=== PATIENT | female | born 1955 ===

== ENCOUNTER 2018-11-27 13:21 | Inpatient (IN) | payer MEDICARE, MEDICAID ==
[2018-11-27 16:03] VITALS: BMI 43.3
[2018-11-27] MEDS: Oxycodone/Acetaminophen 5/325 mg Tab PO PRN (19:15)
[2018-11-27] MEDS ORDERED: Oxycodone/Acetaminophen 5/325 mg Tab PO SCH (20:00)
[2018-11-27] MEDS: Insulin Regular 100 units/ml SC SCH (21:50)
[2018-11-28 06:03] LABS: BASO % 0.3 % (0.0-2.0); EOS # 0.3 K/uL (0.0-0.7); EOS % 4.2 % (0.0-4.0); HEMOGLOBIN 12.8 g/dL (12.0-16.0); LYMPH # 2.7 K/uL (1.0-4.3); MEAN CELL VOLUME 92.1 fl (81.0-99.0); MEAN CORPUSCULAR HEMOGLOBIN 31.1 pg (27.0-31.0); MEAN CORPUSCULAR HGB CONC 33.8 g/dL (33.0-37.0); MONO # 0.7 K/uL (0.0-0.8); MONO % 8.1 % (0.0-10.0); NEUT # 4.4 K/uL (1.8-7.0); NEUT % 54.4 % (50.0-75.0); NRBC % 0.1 % (0.0-0.0); RBC 4.11 Mil/uL (3.80-5.20); RED CELL DISTRIBUTION WIDTH 14.6 % (11.5-14.5); WHITE BLOOD COUNT 8.2 K/uL (4.8-10.8)
[2018-11-28 06:10] LABS: ALB/GLOB RATIO 1.2 (1.0-2.1); ALBUMIN 4.1 g/dL (3.5-5.0); ALT/SGPT 28 U/L (9-52); AST/SGOT 26 U/L (14-36); BLOOD UREA NITROGEN 19 mg/dl (7-17); CALCIUM 9.2 mg/dL (8.4-10.2); GFR NON-AFRICAN AMERICAN > 60
[2018-11-28 06:19] LABS: PROTHROMBIN TIME 11.8 Seconds (9.8-13.1)
--- NOTE | 2018-11-28 06:19 | CP.PCM.HP ---
<[facility] - Last Filed: 11/28/18 10:42> History of Present Illness - History of Present Illness History of Present Illness: 63 yo obese female with hx of DM and HTN transferred from [facility] due to R humeral and femoral fracture. Patient is status post fall last Sunday while she was waking and taking pictures in a park. CT of RUE showed slightly comminute humeral neck fracture, no dislocation and CT of RLE showed oblique fx of distal femoral shaft, slightly displaced at metaphysis, non displaced fracture line on articular surface of the lateral knee joint. Patient has R leg immobilizer at this time and also sling on R arm. Complaining of pain when moving but controlled with meds. Patient admitted to Rehab unit. PMH:DM, HTN, arthritis PSx: Right knee replacement (2001), Cesarian section (1979) Allergy: as above Social: Denies alcohol, tobacco, or illicit drug. She lives with her sister and is unemployed Family Hx: Father DM, Mother , Sister: unknown cancer at 64 Medications: chart reviewed Present on Admission - Present on Admission Any Indicators Present on Admission: No Review of Systems - Review of Systems All systems: reviewed and no additional remarkable complaints except (HPI) Past Patient History - Infectious Disease Hx of Infectious Diseases: None - Past Medical History & Family History Past Medical History?: Yes - Past Social History Smoking Status: Never Smoked - CARDIAC Hx Hypertension: Yes - PULMONARY Hx Asthma: No - NEUROLOGICAL Hx Neurological Disorder: No - HEENT Hx HEENT Problems: No - RENAL Hx Chronic Kidney Disease: No - ENDOCRINE/METABOLIC Hx Endocrine Disorders: Yes Hx Diabetes Mellitus Type 2: Yes - HEMATOLOGICAL/ONCOLOGICAL Hx Blood Disorders: No - INTEGUMENTARY Hx Dermatological Problems: No - MUSCULOSKELETAL/RHEUMATOLOGICAL Hx Falls: Yes - GASTROINTESTINAL Hx Gastrointestinal Disorders: No - GENITOURINARY/GYNECOLOGICAL Other/Comment: "sx on ovary" - PSYCHIATRIC Hx Substance Use: No - SURGICAL HISTORY Hx Surgeries: Yes Hx Orthopedic Surgery: Yes (knee) Hx Tubal Ligation: Yes Other/Comment: rt knee pain. ovarian sx - ANESTHESIA Hx Anesthesia: Yes Hx Anesthesia Reactions: No Meds Allergies/Adverse Reactions: Allergies Allergy/AdvReac Type Severity Reaction Status Date / Time ibuprofen Allergy SWELLING Verified 06/07/18 10:15 naproxen Allergy Verified 06/07/18 13:34 aspirin AdvReac RASH Verified 06/13/18 08:04 Physical Exam - Constitutional Appears: Non-toxic, No Acute Distress - Head Exam Head Exam: NORMAL INSPECTION - Eye Exam Eye Exam: EOMI, PERRL - ENT Exam ENT Exam: Mucous Membranes Moist - Neck Exam Neck exam: Positive for: Full Rom. Negative for: Lymphadenopathy, Tenderness, Thyromegaly - Respiratory Exam Respiratory Exam: Clear to Auscultation Bilateral, NORMAL BREATHING PATTERN. absent: Decreased Breath Sounds - Cardiovascular Exam Cardiovascular Exam: REGULAR RHYTHM, +S1, +S2. absent: Tachycardia - GI/Abdominal Exam GI & Abdominal Exam: Normal Bowel Sounds, Soft. absent: Distended, Tenderness - Extremities Exam Extremities exam: Positive for: normal capillary refill, pedal pulses present. Negative for: tenderness (R knee and R shoulder) Additional comments: RUE: R shoulder brace in place, no edema or signs of neurovascular compromise noted. RLE: immobilizer noted in place, no calf tenderness or edema but reports pain on the knee. - Neurological Exam Neurological exam: Alert, CN II-XII Intact, Oriented x3 - Psychiatric Exam Psychiatric exam: Normal Mood - Skin Skin Exam: Dry, Warm Results - Vital Signs Recent Vital Signs: Last Vital Signs Temp 98.1 F 11/27/18 20:00 Pulse 85 11/27/18 20:00 Resp 20 11/27/18 20:00 BP 125/56 L 11/27/18 20:00 Pulse Ox 95 11/27/18 20:00 - Labs Result Diagrams: 11/28/18 05:51 11/28/18 05:51 Labs: Laboratory Results - last 24 hr 11/27/18 11/27/18 11/28/18 19:09 21:48 05:42 WBC RBC Hgb Hct MCV MCH MCHC RDW Plt Count MPV Neut % (Auto) Lymph % (Auto) [place]eller % (Auto) Eos % (Auto) Baso % (Auto) Neut # (Auto) Lymph # (Auto) Teller # (Auto) Eos # (Auto) Baso # (Auto) PT INR Sodium Potassium Chloride Carbon Dioxide Anion Gap BUN Creatinine Est GFR ( Amer) Est GFR (Non-Af Amer) POC Glucose (mg/dL) 194 H 171 H 139 H Random Glucose Calcium Total Bilirubin AST ALT Alkaline Phosphatase Total Protein Albumin Globulin Albumin/Globulin Ratio 11/28/18 11/28/18 11/28/18 05:51 05:51 05:51 WBC 8.2 RBC 4.11 Hgb 12.8 Hct 37.9 MCV 92.1 MCH 31.1 H MCHC 33.8 RDW 14.6 H Plt Count 171 MPV 10.0 Neut % (Auto) 54.4 Lymph % (Auto) 33.0 Teller % (Auto) 8.1 Eos % (Auto) 4.2 H Baso % (Auto) 0.3 Neut # (Auto) 4.4 Lymph # (Auto) 2.7 Teller # (Auto) 0.7 Eos # (Auto) 0.3 Baso # (Auto) 0.0 PT 11.8 INR 1.0 Sodium 138 Potassium 4.4 Chloride 98 Carbon Dioxide 30 Anion Gap 14 BUN 19 H Creatinine 0.6 L Est GFR ( Amer) > 60 Est GFR (Non-Af Amer) > 60 POC Glucose (mg/dL) Random Glucose 135 H Calcium 9.2 Total Bilirubin 0.9 AST 26 ALT 28 Alkaline Phosphatase 113 Total Protein 7.6 Albumin 4.1 Globulin 3.5 Albumin/Globulin Ratio 1.2 Assessment & Plan - Assessment and Plan (Free Text) Assessment: 63 yo obese female with hx of DM and HTN with R humeral and femoral fracture s/p fall on 11/23/18 admitted to rehab unit for PT/OT. Plan: R humeral and femoral fracture - s/p fall - pain management - NWB to RLE and RUE - Physiatry consulted, recs appreciated - PT/OT - HTN: controlled, some elevations noted likely 2/2 to pain, continue home meds - DM: chronic controlled, continue home meds - DVT ppx - labs in am - rest of plan as ordered Case discussed with Dr Hillman. <Froy Hillman - Last Filed: 11/29/18 08:06> Results - Vital Signs Recent Vital Signs: Last Vital Signs Temp 98.4 F 11/28/18 20:35 Pulse 84 11/28/18 20:35 Resp 20 11/28/18 20:35 BP 117/63 11/28/18 20:35 Pulse Ox 97 11/28/18 20:35 - Labs Result Diagrams: 11/28/18 05:51 11/28/18 05:51 Labs: Laboratory Results - last 24 hr 11/28/18 11/28/1819 05:51 11:22 16:00 POC Glucose (mg/dL) 151 H 146 H Hemoglobin A1c 6.2 11/28/18 11/29/18 20:48 07:12 POC Glucose (mg/dL) 147 H 128 H Hemoglobin A1c Assessment & Plan - Assessment and Plan (Free Text) Plan: Patient was personally seen and examined by me in rounds with residents. Available labs and diagnostic data reviewed. Case, Patient's condition and management plan discussed with residents in rounds. Agree with resident's progress note. Plan: As ordered.
[2018-11-28 06:21] LABS: PARTIAL THROMBOPLASTIN TIME 36.7 Seconds (25.6-37.1)
[2018-11-28 06:38] LABS: T3 1.16 nmol/L (1.49-2.60)
[2018-11-28] MEDS: Insulin Regular 100 units/ml SC SCH ×4 (06:58→22:36)
[2018-11-28] MEDS: Enoxaparin 40 mg Syringe SC SCH (09:43)
[2018-11-28] MEDS: Oxycodone/Acetaminophen 5/325 mg Tab PO PRN ×2 (09:49→16:38)
--- NOTE | 2018-11-28 19:00 | PCM.CPAPS ---
History of Present Illness - History of Present Illness History of Present Illness: 63 year old female admitted to acute rehab last night from [facility], status post fall and suffered a right humerus and right femur fracture. other Pmh significant for DM, arthritis, obesity and history of r knee surgery Review of Systems - Musculoskeletal Musculoskeletal: Limited Range of Motion, Muscle Weakness Past Patient History - Infectious Disease Hx of Infectious Diseases: None - Past Medical History & Family History Past Medical History?: Yes - Past Social History Smoking Status: Never Smoked - CARDIAC Hx Hypertension: Yes - PULMONARY Hx Asthma: No - NEUROLOGICAL Hx Neurological Disorder: No - HEENT Hx HEENT Problems: No - RENAL Hx Chronic Kidney Disease: No - ENDOCRINE/METABOLIC Hx Diabetes Mellitus Type 2: Yes - HEMATOLOGICAL/ONCOLOGICAL Hx Blood Disorders: No - INTEGUMENTARY Hx Dermatological Problems: No - MUSCULOSKELETAL/RHEUMATOLOGICAL Hx Falls: Yes - GASTROINTESTINAL Hx Gastrointestinal Disorders: No - GENITOURINARY/GYNECOLOGICAL Other/Comment: "sx on ovary" - PSYCHIATRIC Hx Substance Use: No - SURGICAL HISTORY Hx Surgeries: Yes Hx Orthopedic Surgery: Yes (knee) Hx Tubal Ligation: Yes Other/Comment: rt knee pain. ovarian sx - ANESTHESIA Hx Anesthesia: Yes Hx Anesthesia Reactions: No Meds Allergies/Adverse Reactions: Allergies Allergy/AdvReac Type Severity Reaction Status Date / Time ibuprofen Allergy SWELLING Verified 06/07/18 10:15 naproxen Allergy Verified 06/07/18 13:34 aspirin AdvReac RASH Verified 06/13/18 08:04 - Medications Medications: Current Medications Acetaminophen (Tylenol 325mg Tab) 650 mg PO Q6 PRN PRN Reason: Pain, moderate (4-7) Atorvastatin Calcium (Lipitor) 40 mg PO [facility] Last Admin: 11/27/18 21:40 Dose: 40 mg Docusate Sodium (Colace) 100 mg PO BID [facility] Last Admin: 11/28/18 16:15 Dose: 100 mg Enoxaparin Sodium (Lovenox) 40 mg SC DAILY [facility]; Protocol Last Admin: 11/28/18 09:43 Dose: 40 mg Famotidine (Pepcid) 20 mg PO BID [facility] Last Admin: 11/28/18 16:15 Dose: 20 mg Hydrocortisone (Cortizone 0.5% Cream) 1 applic TOP BID [facility] Last Admin: 11/28/18 16:15 Dose: 1 applic Insulin Human Regular (Humulin R) 0 units SC [facility]; Protocol Last Admin: 11/28/18 16:13 Dose: Not Given Metformin HCl (Glucophage) 1,000 mg PO BID [facility] Last Admin: 11/28/18 16:15 Dose: 1,000 mg Oxycodone/Acetaminophen (Percocet 5/325 Mg Tab) 1 tab PO Q4 PRN PRN Reason: Pain, severe (8-10) Stop: 11/30/18 18:52 Last Admin: 11/28/18 16:38 Dose: 1 tab Physical Exam - Constitutional Appears: Well - Head Exam Head Exam: ATRAUMATIC, NORMAL INSPECTION, NORMOCEPHALIC - Eye Exam Eye Exam: EOMI, Normal appearance Pupil Exam: NORMAL ACCOMODATION, PERRL - ENT Exam ENT Exam: Mucous Membranes Moist, Normal Exam - Neck Exam Neck exam: Positive for: Normal Inspection - Respiratory Exam Respiratory Exam: Clear to Auscultation Bilateral, NORMAL BREATHING PATTERN - Cardiovascular Exam Cardiovascular Exam: REGULAR RHYTHM - GI/Abdominal Exam GI & Abdominal Exam: Normal Bowel Sounds - Rectal Exam Rectal Exam: NORMAL INSPECTION - Exam External exam: NORMAL EXTERNAL EXAM - Extremities Exam Extremities exam: Positive for: normal inspection Additional comments: right upper arm in sling and right leg in immobilizer with non weight bearing, toes and hands with good color, - Back Exam Back exam: NORMAL INSPECTION - Neurological Exam Neurological exam: Alert, CN II-XII Intact - Psychiatric Exam Psychiatric exam: Normal Affect - Skin Skin Exam: Normal Color Results - Vital Signs Recent Vital Signs: Last Vital Signs Temp 97.9 F 11/28/18 08:43 Pulse 81 11/28/18 12:20 Resp 21 11/28/18 12:20 BP 127/61 11/28/18 12:20 Pulse Ox 97 11/28/18 12:20 - Labs Result Diagrams: 11/28/18 05:51 11/28/18 05:51 Labs: Laboratory Results - last 24 hr 11/27/18 11/27/18 11/28/18 19:09 21:48 05:42 WBC RBC Hgb Hct MCV MCH MCHC RDW Plt Count MPV Neut % (Auto) Lymph % (Auto) [place] % (Auto) Eos % (Auto) Baso % (Auto) Neut # (Auto) Lymph # (Auto) [place] # (Auto) Eos # (Auto) Baso # (Auto) PT INR APTT Sodium Potassium Chloride Carbon Dioxide Anion Gap BUN Creatinine Est GFR ( Amer) Est GFR (Non-Af Amer) POC Glucose (mg/dL) 194 H 171 H 139 H Random Glucose Hemoglobin A1c Calcium Total Bilirubin AST ALT Alkaline Phosphatase Total Protein Albumin Globulin Albumin/Globulin Ratio Vitamin B12 Thyroxine (T4) Total T3 TSH 3rd Generation 11/28/18 11/28/18 11/28/18 05:51 05:51 05:51 WBC 8.2 RBC 4.11 Hgb 12.8 Hct 37.9 MCV 92.1 MCH 31.1 H MCHC 33.8 RDW 14.6 H Plt Count 171 MPV 10.0 Neut % (Auto) 54.4 Lymph % (Auto) 33.0 [place] % (Auto) 8.1 Eos % (Auto) 4.2 H Baso % (Auto) 0.3 Neut # (Auto) 4.4 Lymph # (Auto) 2.7 [place] # (Auto) 0.7 Eos # (Auto) 0.3 Baso # (Auto) 0.0 PT INR APTT Sodium 138 Potassium 4.4 Chloride 98 Carbon Dioxide 30 Anion Gap 14 BUN 19 H Creatinine 0.6 L Est GFR ( Amer) > 60 Est GFR (Non-Af Amer) > 60 POC Glucose (mg/dL) Random Glucose 135 H Hemoglobin A1c 6.2 Calcium 9.2 Total Bilirubin 0.9 AST 26 ALT 28 Alkaline Phosphatase 113 Total Protein 7.6 Albumin 4.1 Globulin 3.5 Albumin/Globulin Ratio 1.2 Vitamin B12 348 Thyroxine (T4) 14.1 H Total T3 1.16 L TSH 3rd Generation 3.72 11/28/18 11/28/18 05:51 11:22 WBC RBC Hgb Hct MCV MCH MCHC RDW Plt Count MPV Neut % (Auto) Lymph % (Auto) [place] % (Auto) Eos % (Auto) Baso % (Auto) Neut # (Auto) Lymph # (Auto) [place] # (Auto) Eos # (Auto) Baso # (Auto) PT 11.8 INR 1.0 APTT 36.7 Sodium Potassium Chloride Carbon Dioxide Anion Gap BUN Creatinine Est GFR ( Amer) Est GFR (Non-Af Amer) POC Glucose (mg/dL) 151 H Random Glucose Hemoglobin A1c Calcium Total Bilirubin AST ALT Alkaline Phosphatase Total Protein Albumin Globulin Albumin/Globulin Ratio Vitamin B12 Thyroxine (T4) Total T3 TSH 3rd Generation Assessment & Plan (1) Right humeral fracture Assessment and Plan: sling and non weight bearing Status: Acute (2) Right femoral fracture Assessment and Plan: immobilizer and non weight bearing Status: Acute - Assessment and Plan (Free Text) Assessment: Plan patient is non weight bearing on right arm with sling and also non weight bearing right leg with immobilizer. Discussed case with PMD Dr Hillman and Dr Dm Velasquez orthopedic doctor.([phone]). Dr Velasquez stated patient does not need surgical intervention and advised to follow the non weight bearing on the right arm with sling and R leg with immobilizer non weight bearing. He said he will follow patient as an outpatient in his office,patient scheduled for follow up tomorrow at 9.[address] Velasquez office. Patient examined , family was present and they asked for a second opinion. Instructed family to discuss with primary medical doctor Dr Hillman, and gave his phone to family. Family said they know him and will reach out to him. Also called Dr Hillman and made him aware of family wishes. Rehab is limited at present. - Functional Status Prior to Admission: patient was independent Current Status: now needs assistance in all activities Impairment Code: 08.9 right humerus and right femur fracture
--- NOTE | 2018-11-28 19:33 | PCM.OPOC ---
Physiatry Overall Plan of Care - Overall Plan of Care Estimated Length of Stay in Weeks: 1 Rehab Impairment: Mobility, Gait, Balance, Coordination Etiologic Diagnosis: Other Rehab/Medical Prognosis: Fair - Anticipated Interventions Physical Therapy:: Yes Number of Hours: 2 Number of times per week: 5 Number of Week(s) Duration: 1 Occupational Therapy:: Yes Number of Hours: 1 Number of times per week: 5 Number of Week(s) Duration: 1 Speech Therapy:: No Recreational Therapy:: Yes Number of Hours: 1 Number of times per week: 5 Number of Week(s) Duration: 1 - Therapy Goals Bed Mobility: Minimal Assistance Ambulation: Dependent Functional Positional Changes:: Contact Guard - Functional Status Prior to Admission: independent Current Status: needs assistance in adls, transfers and gait - Functional Outcomes Functional Outcomes: fair - Discharge Plan Identification of Barriers to Discharge: Other Discharge Destination: Subacute
[2018-11-29] MEDS: Oxycodone/Acetaminophen 5/325 mg Tab PO PRN ×4 (03:16→20:14)
[2018-11-29] MEDS: Insulin Regular 100 units/ml SC SCH ×4 (07:14→21:31)
[2018-11-29] MEDS: Enoxaparin 40 mg Syringe SC SCH (08:21)
--- NOTE | 2018-11-29 11:14 | CP.PCM.PN ---
<Mercy Zhong - Last Filed: 11/29/18 11:17> Subjective - Date & Time of Evaluation Date of Evaluation: 11/29/18 Time of Evaluation: 11:10 - Subjective Subjective: Patient seen and examined this morning, reports pain improved, no overnight events. Working on PT Going for Ortho consult this am Objective - Vital Signs/Intake and Output Vital Signs (last 24 hours): Temp Pulse Resp BP Pulse Ox 97.9 F 82 20 133/67 95 11/29/18 08:28 11/29/18 08:28 11/29/18 08:28 11/29/18 08:28 11/29/18 08:28 - Medications Medications: Current Medications Acetaminophen (Tylenol 325mg Tab) 650 mg PO Q6 PRN PRN Reason: Pain, moderate (4-7) Atorvastatin Calcium (Lipitor) 40 mg PO HS [facility]S [facility] BEDS AT [facility] Last Admin: 11/28/18 22:35 Dose: 40 mg Docusate Sodium (Colace) 100 mg PO BID [facility] 234 BEDS AT [facility] Last Admin: 11/29/18 08:22 Dose: 100 mg Enoxaparin Sodium (Lovenox) 40 mg SC DAILY [facility]S [facility]CLUDE 234 BEDS AT [facility]; Protocol Last Admin: 11/29/18 08:21 Dose: 40 mg Famotidine (Pepcid) 20 mg PO BID [facility] 234 BEDS AT [facility] Last Admin: 11/29/18 08:22 Dose: 20 mg Hydrocortisone (Cortizone 0.5% Cream) 1 applic TOP BID [facility]CLUDE 234 BEDS AT [facility] Last Admin: 11/29/18 08:23 Dose: 1 applic Insulin Human Regular (Humulin R) 0 units [facility]; Protocol Last Admin: 11/29/18 07:14 Dose: Not Given Metformin HCl (Glucophage) 1,000 mg PO BID [facility]CLUDE 234 BEDS AT [facility] Last Admin: 11/29/18 08:21 Dose: 1,000 mg Oxycodone/Acetaminophen (Percocet 5/325 Mg Tab) 1 tab PO Q4 PRN PRN Reason: Pain, severe (8-10) Stop: 11/30/18 18:52 Last Admin: 11/29/18 08:19 Dose: 1 tab - Labs Labs: 11/28/18 05:51 11/28/18 05:51 PT 11.8 Seconds (9.8-13.1) 11/28/18 05:51 INR 1.0 11/28/18 05:51 APTT 36.7 Seconds (25.6-37.1) 11/28/18 05:51 - Constitutional Appears: No Acute Distress - Head Exam Head Exam: NORMAL INSPECTION - Eye Exam Eye Exam: EOMI, PERRL - ENT Exam ENT Exam: Mucous Membranes Moist - Respiratory Exam Respiratory Exam: Clear to Ausculation Bilateral, NORMAL BREATHING PATTERN. absent: Chest Wall Tenderness - Cardiovascular Exam Cardiovascular Exam: REGULAR RHYTHM, +S1, +S2. absent: Tachycardia - GI/Abdominal Exam GI & Abdominal Exam: Soft, Normal Bowel Sounds. absent: Distended, Tenderness - Extremities Exam Extremities Exam: absent: Calf Tenderness, Pedal Edema Additional comments: R shoulder sling and R knee immobilizer noted in place, swelling much improved, able to move fingers and toes, sensation intact - Neurological Exam Neurological Exam: Alert, Awake, CN II-XII Intact, Oriented x3 - Skin Skin Exam: Dry, Warm Assessment and Plan - Assessment and Plan (Free Text) Assessment: 63 yo obese female with hx of DM and HTN with R humeral and femoral fracture s/p fall on 11/23/18 admitted to rehab unit for PT/OT. Plan: R humeral and femoral fracture - pain management - NWB to RLE and RUE - Physiatry consulted, recs appreciated - PT/OT - HTN: controlled, continue home meds - DM: chronic controlled, continue home meds - DVT ppx - labs in am - rest of plan as ordered Case discussed with Dr Hillman. <Froy Hillman - Last Filed: 12/04/18 16:50> Objective - Vital Signs/Intake and Output Vital Signs (last 24 hours): Temp Pulse Resp BP Pulse Ox 98.7 F 77 19 132/83 98 12/04/18 08:12 12/04/18 08:12 12/04/18 08:12 12/04/18 08:12 12/04/18 07:54 - Medications Medications: Current Medications Acetaminophen (Tylenol 325mg Tab) 650 mg PO Q6 PRN PRN Reason: Pain, moderate (4-7) Atorvastatin Calcium (Lipitor) 40 mg PO HS COUNTS [facility]CLUDE 234 BEDS AT [facility] Last Admin: 12/03/18 21:16 Dose: 40 mg Ciprofloxacin (Cipro) 500 mg PO Q12 COUNTS INCLUDE 234 BEDS AT [facility]; Protocol Last Admin: 12/04/18 08:50 Dose: 500 mg Docusate Sodium (Colace) 100 mg PO BID [facility]CLUDE 234 BEDS AT [facility] Last Admin: 12/04/18 16:30 Dose: 100 mg Enoxaparin Sodium (Lovenox) 40 mg SC DAILY [facility]S [facility]CLUDE 234 BEDS AT [facility]; Protocol Last Admin: 12/04/18 08:51 Dose: 40 mg Famotidine (Pepcid) 20 mg PO BID [facility]S [facility]CLUDE 234 BEDS AT [facility] Last Admin: 12/04/18 16:29 Dose: 20 mg Hydrocortisone (Cortizone 0.5% Cream) 1 applic TOP BID COUNTS INCLUDE 234 BEDS AT [facility] Last Admin: 12/04/18 16:30 Dose: 1 applic Insulin Human Regular (Humulin R) 0 units SC [facility] 234 [facility]EDS [facility]; Protocol Last Admin: 12/04/18 16:27 Dose: Not Given Metformin HCl (Glucophage) 1,000 mg PO BID [facility]S INCLUDE 234 BEDS AT [facility] Last Admin: 12/04/18 16:30 Dose: 1,000 mg Ondansetron HCl (Zofran Tab) 4 mg PO Q8 PRN PRN Reason: Nausea/Vomiting Oxycodone/Acetaminophen (Percocet 5/325 Mg Tab) 1 tab PO Q4 PRN PRN Reason: Pain, severe (8-10) Stop: 12/06/18 08:01 Last Admin: 12/04/18 13:31 Dose: 1 tab - Labs Labs: 12/02/18 06:00 12/02/18 06:00 PT 11.8 Seconds (9.8-13.1) 11/28/18 05:51 INR 1.0 11/28/18 05:51 APTT 36.7 Seconds (25.6-37.1) 11/28/18 05:51 Assessment and Plan - Assessment and Plan (Free Text) Assessment: Patient was personally seen and examined by me in rounds with residents. Available labs and diagnostic data reviewed. Case, Patient's condition and management plan discussed with residents in r ounds. Agree with resident's progress note. Plan: As ordered.
--- NOTE | 2018-11-29 14:02 | RAD ---
Date of service: 11/28/2018 PROCEDURE: Radiographs of the Right Shoulder HISTORY: Fracture COMPARISON: No prior. TECHNIQUE: One views obtained. FINDINGS: BONES: Limited examination. Single view. Technically limited due to body habitus. No evidence of fracture. JOINTS: Unremarkable glenohumeral articulation. Irregularity of acromioclavicular articulation with widening of the joint.. Evaluation limited. SOFT TISSUES: Normal. OTHER FINDINGS: None. IMPRESSION: Limited examination. No acute fracture. Mild widening of the acromioclavicular joint with irregularity of the articular surfaces. Uncertain significance. The preliminary findings for this examination were reported by [facility] at 8:50 p.m. on 11/28/2018. There is concurrence of this report with the preliminary findings.
--- NOTE | 2018-11-29 14:07 | RAD ---
PROCEDURE: Radiographs of the right humerus. HISTORY: Fracture COMPARISON: None. TECHNIQUE: 2 views obtained. FINDINGS: BONES: Suspect nondisplaced fracture of humeral neck. This was poorly visualized on the single view of the shoulder included in separate examination. No other fracture identified. SOFT TISSUES: Normal. OTHER FINDINGS: None. IMPRESSION: Probable nondisplaced fracture of humeral neck. Technically limited examination. The preliminary findings for this examination were reported by [facility] at 8:50 p.m. on 11/28/2018. There is discordance of this report with the preliminary findings. This discrepancy was discussed with the patient's nurse, Marsha at 2 p.m. on 11/29/2018.
--- NOTE | 2018-11-29 14:08 | RAD ---
Date of service: 11/28/2018 PROCEDURE: Right Femur Radiographs. HISTORY: Fracture COMPARISON: None. TECHNIQUE: AP and Lateral Radiographs of the right femur. Three views obtained. FINDINGS: FEMUR: Oblique nondisplaced fracture distal femur. Possible comminution. No evidence of intra-articular extension. Technically limited examination. No other fracture identified. SOFT TISSUES: Normal. OTHER FINDINGS: None. IMPRESSION: Oblique nondisplaced distal femoral diaphysis fracture. The preliminary findings for this examination were reported by [facility] at 9:28 p.m. on 11/28/2018. There is concurrence of this report with the preliminary findings.
--- NOTE | 2018-11-29 14:10 | RAD ---
Date of service: 11/28/2018 PROCEDURE: Right Knee Radiographs. HISTORY: Fracture COMPARISON: None. TECHNIQUE: One views obtained. FINDINGS: BONES: Technically limited examination. Oblique nondisplaced distal femoral diaphysis fracture. No other fracture appreciated. No evidence of intra-articular extension. JOINTS: Medial osteoarthritis. No articular erosion. Patellofemoral articulation is not evaluated. JOINT EFFUSION: Unable to evaluate in the absence of a lateral view. OTHER FINDINGS: None. IMPRESSION: Oblique nondisplaced distal femoral diaphysis fracture. Medial osteoarthritis of the knee. Technically limited examination. The preliminary findings for this examination were reported by [facility] at 9:28 p.m. on 11/28/2018. There is concurrence of this report with the preliminary findings.
--- NOTE | 2018-11-29 15:20 | CP.PCM.PN ---
Subjective - Date & Time of Evaluation Date of Evaluation: 11/29/18 Time of Evaluation: 14:00 - Subjective Subjective: patient is lying in bed , comfortable status post follow up in orthopedic office today Objective - Vital Signs/Intake and Output Vital Signs (last 24 hours): Temp Pulse Resp BP Pulse Ox 97.9 F 82 20 133/67 95 11/29/18 08:28 11/29/18 08:28 11/29/18 08:28 11/29/18 08:28 11/29/18 08:28 - Medications Medications: Current Medications Acetaminophen (Tylenol 325mg Tab) 650 mg PO Q6 PRN PRN Reason: Pain, moderate (4-7) Atorvastatin Calcium (Lipitor) 40 mg PO HS [facility] Last Admin: 11/28/18 22:35 Dose: 40 mg Docusate Sodium (Colace) 100 mg PO BID [facility] Last Admin: 11/29/18 08:22 Dose: 100 mg Enoxaparin Sodium (Lovenox) 40 mg SC DAILY [facility]; Protocol Last Admin: 11/29/18 08:21 Dose: 40 mg Famotidine (Pepcid) 20 mg PO BID [facility] Last Admin: 11/29/18 08:22 Dose: 20 mg Hydrocortisone (Cortizone 0.5% Cream) 1 applic TOP BID [facility] Last Admin: 11/29/18 08:23 Dose: 1 applic Insulin Human Regular (Humulin R) 0 units SC [facility]; Protocol Last Admin: 11/29/18 11:54 Dose: Not Given Metformin HCl (Glucophage) 1,000 mg PO BID [facility] Last Admin: 11/29/18 08:21 Dose: 1,000 mg Oxycodone/Acetaminophen (Percocet 5/325 Mg Tab) 1 tab PO Q4 PRN PRN Reason: Pain, severe (8-10) Stop: 11/30/18 18:52 Last Admin: 11/29/18 14:15 Dose: 1 tab - Labs Labs: 11/28/18 05:51 11/28/18 05:51 PT 11.8 Seconds (9.8-13.1) 11/28/18 05:51 INR 1.0 11/28/18 05:51 APTT 36.7 Seconds (25.6-37.1) 11/28/18 05:51 - Constitutional Appears: Well - Head Exam Head Exam: NORMAL INSPECTION, NORMOCEPHALIC - Eye Exam Eye Exam: EOMI, Normal appearance, PERRL Pupil Exam: NORMAL ACCOMODATION - ENT Exam ENT Exam: Mucous Membranes Moist, Normal Exam - Neck Exam Neck Exam: Full ROM, Normal Inspection - Respiratory Exam Respiratory Exam: Clear to Ausculation Bilateral, NORMAL BREATHING PATTERN - Cardiovascular Exam Cardiovascular Exam: REGULAR RHYTHM - GI/Abdominal Exam GI & Abdominal Exam: Soft, Normal Bowel Sounds - Rectal Exam Rectal Exam: NORMAL INSPECTION - Exam External exam: NORMAL EXTERNAL EXAM - Extremities Exam Extremities Exam: Full ROM, Normal Capillary Refill, Normal Inspection - Back Exam Back Exam: NORMAL INSPECTION - Neurological Exam Neurological Exam: Alert, Awake Neuro motor strength exam: Right Upper Extremity: 3 (sling), Right Lower Extremity: 3 (immobilizer) - Psychiatric Exam Psychiatric exam: Normal Affect, Normal Mood - Skin Skin Exam: Dry, Intact Assessment and Plan (1) Right humeral fracture Assessment & Plan: patient was seen in orthopedic doctor office . according to the orthopaedic consult written Md discussed risks of fracture displacement with patient.Patient refusing surgery. She will continue non weight bearing right upper and right lower extremity. She is scheduled for follow up appointment for December 18 Today I examined patient with the arcade game technician Geraldine, patient claims she is afraid of surgery and will follow with the present precautions as her fracture is' delicate' and will follow up with the orthopedic doctor Dr Rodriguez and his group in next few weeks for follow up. Discussed with patient and family member present in room that rehab is limited and will need subacute rehab. Status: Acute (2) Right femoral fracture Status: Acute
[2018-11-30] MEDS: Insulin Regular 100 units/ml SC SCH ×4 (07:50→21:00)
[2018-11-30 08:33] LABS: HEMOGLOBIN 12.3 g/dL (12.0-16.0); MEAN CELL VOLUME 92.1 fl (81.0-99.0); MEAN CORPUSCULAR HGB CONC 33.6 g/dL (33.0-37.0); RBC 3.98 Mil/uL (3.80-5.20); RED CELL DISTRIBUTION WIDTH 14.6 % (11.5-14.5); WHITE BLOOD COUNT 8.8 K/uL (4.8-10.8)
[2018-11-30 08:35] LABS: ALB/GLOB RATIO 1.2 (1.0-2.1); ALT/SGPT 25 U/L (9-52); AST/SGOT 25 U/L (14-36); BLOOD UREA NITROGEN 17 mg/dl (7-17); CALCIUM 9.1 mg/dL (8.4-10.2); GFR NON-AFRICAN AMERICAN > 60
[2018-11-30] MEDS: Oxycodone/Acetaminophen 5/325 mg Tab PO PRN ×2 (09:15→13:33)
[2018-11-30] MEDS: Enoxaparin 40 mg Syringe SC SCH (09:17)
--- NOTE | 2018-11-30 09:30 | CP.PCM.PN ---
Subjective - Date & Time of Evaluation Date of Evaluation: 11/30/18 Time of Evaluation: 09:28 - Subjective Subjective: Dr Araujo PMR coverage for Dr Mims on Teodora Chambers, born 1955 who has been admitted to [facility] for acute inpatient rehabilitation following a fall that resulted in non-displaced fracture of the right femur and right humerus. Immo bilizer on both and NWB. Denies numbness and tingling. Pain is controlled with medication. She is right hand dominant. Objective - Vital Signs/Intake and Output Vital Signs (last 24 hours): Temp Pulse Resp BP Pulse Ox 97.7 F 83 20 128/70 96 11/30/18 07:37 11/30/18 07:37 11/30/18 07:37 11/30/18 07:37 11/30/18 07:37 - Medications Medications: Current Medications Acetaminophen (Tylenol 325mg Tab) 650 mg PO Q6 PRN PRN Reason: Pain, moderate (4-7) Atorvastatin Calcium (Lipitor) 40 mg PO [facility] Last Admin: 11/29/18 21:28 Dose: 40 mg Docusate Sodium (Colace) 100 mg PO BID [facility] Last Admin: 11/30/18 09:16 Dose: 100 mg Enoxaparin Sodium (Lovenox) 40 mg SC DAILY [facility]; Protocol Last Admin: 11/30/18 09:17 Dose: 40 mg Famotidine (Pepcid) 20 mg PO BID [facility] Last Admin: 11/30/18 09:16 Dose: 20 mg Hydrocortisone (Cortizone 0.5% Cream) 1 applic TOP BID [facility] Last Admin: 11/30/18 09:16 Dose: 1 applic Insulin Human Regular (Humulin R) 0 units SC [facility]; Protocol Last Admin: 11/30/18 07:50 Dose: Not Given Metformin HCl (Glucophage) 1,000 mg PO BID [facility] Last Admin: 11/30/18 09:16 Dose: 1,000 mg Oxycodone/Acetaminophen (Percocet 5/325 Mg Tab) 1 tab PO Q4 PRN PRN Reason: Pain, severe (8-10) Stop: 11/30/18 18:52 Last Admin: 11/30/18 09:15 Dose: 1 tab - Labs Labs: 11/30/18 06:05 11/30/18 06:05 PT 11.8 Seconds (9.8-13.1) 11/28/18 05:51 INR 1.0 11/28/18 05:51 APTT 36.7 Seconds (25.6-37.1) 11/28/18 05:51 - Constitutional Appears: Well, Non-toxic, No Acute Distress - Head Exam Head Exam: ATRAUMATIC, NORMAL INSPECTION, NORMOCEPHALIC - Eye Exam Eye Exam: EOMI - ENT Exam ENT Exam: Mucous Membranes Moist - Respiratory Exam Respiratory Exam: NORMAL BREATHING PATTERN - Cardiovascular Exam Cardiovascular Exam: REGULAR RHYTHM - GI/Abdominal Exam GI & Abdominal Exam: Distended. absent: Firm - Neurological Exam Neurological Exam: Alert Neuro motor strength exam: Left Upper Extremity: 5 - Psychiatric Exam Psychiatric exam: Normal Affect, Normal Mood - Skin Skin Exam: Warm Assessment and Plan - Assessment and Plan (Free Text) Assessment: 63 year old with non-displaced right humeral and femur fractures non-operative treatment and NWB on both immobilizer in place. PT/OT to continue to help increase functional independence Team conference for d/c planning Pain: controlled Vascular: no evidence of DVT GI: No evidence of constipation or diarrhea
--- NOTE | 2018-11-30 13:55 | PN ---
DATE: 11/30/2018 SUBJECTIVE: The patient seen and examined. Interim events noted. The patient was seen by Orthopedics yesterday. Orthopedic consult noted and appreciated. Case was discussed with Dr. Chavarria yesterday. The patient refused surgery. The patient still complains of pain, but it is controlled with medication. No new complaint. No chest pain. No shortness of breath. PHYSICAL EXAMINATION: GENERAL: The patient is in no acute distress. VITAL SIGNS: Stable. HEART: S1 and S2 normal, regular. LUNGS: Good bilateral air exchange. ABDOMEN: Soft, nontender. EXTREMITIES: The patient is status post fracture of right humerus and right knee. No sign of distal neurovascular compromise. No edema. No calf swelling. No tenderness. No acute ischemia. CENTRAL NERVOUS SYSTEM: Essentially unchanged. DIAGNOSTIC DATA: Available diagnostic data reviewed. ASSESSMENT AND PLAN: Overall, the patient's general medical condition is stable. Case and plan discussed with the patient and her daughter at length at bedside including pros and cons of surgery, which the patient understood, but opted for no surgery at this time. Overall, the patient is medically stable. Plan as ordered. Froy Hillman MD
[2018-12-01 02:33] LABS: SQUAMOUS EPITHIAL 1 /hpf (0-5); URINE BACTERIA FEW (<OCC); URINE BILIRUBIN NEGATIVE (NEGATIVE); URINE BLOOD SMALL (NEGATIVE); URINE CLARITY SLIGHTY-CLOUDY (Clear); URINE COLOR YELLOW (YELLOW); URINE GLUCOSE (UA) NEG (NEGATIVE); URINE LEUKOCYTE ESTERASE MOD Leu/uL (Negative); URINE PROTEIN NEGATIVE (NEGATIVE)
[2018-12-01] MEDS: Oxycodone/Acetaminophen 5/325 mg Tab PO PRN ×3 (06:16→23:07)
[2018-12-01] MEDS: Insulin Regular 100 units/ml SC SCH ×4 (06:30→21:30)
[2018-12-01] MEDS: Enoxaparin 40 mg Syringe SC SCH (08:44)
--- NOTE | 2018-12-01 10:47 | PN ---
DATE: 12/01/2018 SUBJECTIVE: The patient seen and examined. Interim events noted. Physiatry followup and intervention noted and appreciated. The patient remains in acute rehab unit. Denies any specific complaint. No urinary symptoms. No burning, no frequency, no fever. PHYSICAL EXAMINATION: GENERAL: The patient is in no acute distress. VITAL SIGNS: Stable. HEART: S1, S2. Normal and regular. LUNGS: Good bilateral air exchange. ABDOMEN: Soft, nontender. No organomegaly noted. Bowel sounds are present. EXTREMITIES: No edema. No calf swelling. No tenderness. No acute ischemia. The patient is status post fractures. CENTRAL NERVOUS SYSTEM: Exam is essentially unchanged. DIAGNOSTIC DATA: Available diagnostic data reviewed. Urinalysis is consistent with UTI, although the patient has no symptoms of UTI because of recent fractures. ASSESSMENT AND PLAN: We will start the patient on antibiotic culture. Case and plan discussed with the patient and family at bedside. Continue . Plan as ordered. Froy Hillman MD
[2018-12-02] MEDS: Insulin Regular 100 units/ml SC SCH ×4 (06:44→21:00)
[2018-12-02 07:07] LABS: HEMOGLOBIN 12.4 g/dL (12.0-16.0); MEAN CELL VOLUME 91.7 fl (81.0-99.0); MEAN CORPUSCULAR HEMOGLOBIN 31.5 pg (27.0-31.0); MEAN CORPUSCULAR HGB CONC 34.3 g/dL (33.0-37.0); RBC 3.94 Mil/uL (3.80-5.20); RED CELL DISTRIBUTION WIDTH 14.8 % (11.5-14.5); WHITE BLOOD COUNT 9.3 K/uL (4.8-10.8)
[2018-12-02 07:45] LABS: ALB/GLOB RATIO 1.2 (1.0-2.1); ALBUMIN 3.9 g/dL (3.5-5.0); ALT/SGPT 19 U/L (9-52); AST/SGOT 25 U/L (14-36); BLOOD UREA NITROGEN 14 mg/dl (7-17); CALCIUM 9.2 mg/dL (8.4-10.2); GFR NON-AFRICAN AMERICAN > 60
[2018-12-02] MEDS: Enoxaparin 40 mg Syringe SC SCH (08:05)
[2018-12-02] MEDS: Oxycodone/Acetaminophen 5/325 mg Tab PO PRN ×2 (08:09→14:41)
--- NOTE | 2018-12-02 14:35 | PN ---
DATE: 12/02/2018 SUBJECTIVE: The patient seen and examined. Interim events noted. The patient feels okay, still has significant pain. No chest pain. No shortness of breath. PHYSICAL EXAMINATION: GENERAL: The patient is in no acute distress. VITAL SIGNS: Stable. HEART: S1 and S2, normal and regular. LUNGS: Good bilateral air exchange. ABDOMEN: Soft, nontender. EXTREMITIES: No edema, no calf swelling, no tenderness, no acute ischemia. CENTRAL NERVOUS SYSTEM: Essentially unchanged. DIAGNOSTIC DATA: Available diagnostic data reviewed. ASSESSMENT AND PLAN: Case and plan discussed with the patient and family at bedside with interpreted family and the patient is now again considering surgery. Plan as ordered. Froy Hillman MD
[2018-12-03] MEDS: Insulin Regular 100 units/ml SC SCH ×4 (06:30→21:16)
--- NOTE | 2018-12-03 07:59 | CP.PCM.PN ---
<Mercy Zhong - Last Filed: 12/03/18 11:27> Subjective - Date & Time of Evaluation Date of Evaluation: 12/03/18 Time of Evaluation: 07:58 - Subjective Subjective: Patient seen and examined this morning, reports mild arm pain with movements but improved, no overnight events. Working on PT, considering surgery, will follow up Objective - Vital Signs/Intake and Output Vital Signs (last 24 hours): Temp Pulse Resp BP Pulse Ox 97.9 F 75 20 133/70 99 12/02/18 19:30 12/02/18 19:30 12/02/18 19:30 12/02/18 19:30 12/02/18 19:30 - Medications Medications: Current Medications Acetaminophen (Tylenol 325mg Tab) 650 mg PO Q6 PRN PRN Reason: Pain, moderate (4-7) Atorvastatin Calcium (Lipitor) 40 mg PO HS [facility] Last Admin: 12/02/18 21:21 Dose: 40 mg Ciprofloxacin (Cipro) 500 mg PO Q12 [facility]; Protocol Last Admin: 12/02/18 21:21 Dose: 500 mg Docusate Sodium (Colace) 100 mg PO BID [facility] Last Admin: 12/02/18 16:32 Dose: 100 mg Enoxaparin Sodium (Lovenox) 40 mg SC DAILY [facility]; Protocol Last Admin: 12/02/18 08:05 Dose: 40 mg Famotidine (Pepcid) 20 mg PO BID [facility] Last Admin: 12/02/18 16:32 Dose: 20 mg Hydrocortisone (Cortizone 0.5% Cream) 1 applic TOP BID [facility] Last Admin: 12/02/18 16:32 Dose: 1 applic Insulin Human Regular (Humulin R) 0 units SC [facility]; Protocol Last Admin: 12/03/18 06:30 Dose: Not Given Metformin HCl (Glucophage) 1,000 mg PO BID [facility] Last Admin: 12/02/18 16:32 Dose: 1,000 mg Ondansetron HCl (Zofran Tab) 4 mg PO Q8 PRN PRN Reason: Nausea/Vomiting Oxycodone/Acetaminophen (Percocet 5/325 Mg Tab) 1 tab PO Q4 PRN PRN Reason: Pain, severe (8-10) Stop: 12/06/18 08:01 - Labs Labs: 12/02/18 06:00 12/02/18 06:00 PT 11.8 Seconds (9.8-13.1) 11/28/18 05:51 INR 1.0 11/28/18 05:51 APTT 36.7 Seconds (25.6-37.1) 11/28/18 05:51 - Constitutional Appears: Non-toxic, No Acute Distress - Head Exam Head Exam: NORMAL INSPECTION - Eye Exam Eye Exam: EOMI, Normal appearance, PERRL - ENT Exam ENT Exam: Mucous Membranes Moist - Neck Exam Neck Exam: Full ROM, Normal Inspection. absent: Tenderness, Thyromegaly - Respiratory Exam Respiratory Exam: Clear to Ausculation Bilateral, NORMAL BREATHING PATTERN. absent: Chest Wall Tenderness - Cardiovascular Exam Cardiovascular Exam: REGULAR RHYTHM, +S1, +S2 - GI/Abdominal Exam GI & Abdominal Exam: Soft, Normal Bowel Sounds. absent: Distended, Tenderness - Extremities Exam Extremities Exam: absent: Calf Tenderness, Pedal Edema Additional comments: R shoulder sling and R knee immobilizer noted in place, edema much improved, able to move fingers and toes, sensation intact - Neurological Exam Neurological Exam: Alert, Awake, CN II-XII Intact, Oriented x3 - Psychiatric Exam Psychiatric exam: Normal Mood - Skin Skin Exam: Dry, Warm Assessment and Plan - Assessment and Plan (Free Text) Assessment: 63 yo obese female with hx of DM and HTN with R humeral and femoral fracture s/p fall on 11/23/18 admitted to rehab unit for PT/OT. Plan: R humeral and femoral fracture - pain management - NWB to RLE and RUE - Physiatry consulted, recs appreciated - PT/OT - HTN: controlled, continue home meds - DM: chronic controlled, continue home meds - DVT ppx - considering surgery at this time - rest of plan as ordered UTI - urine cx positive E coli - continue abx Case discussed with Dr Hillman. <Froy Hillman - Last Filed: 12/04/18 16:47> Objective - Vital Signs/Intake and Output Vital Signs (last 24 hours): Temp Pulse Resp BP Pulse Ox 98.7 F 77 19 132/83 98 12/04/18 08:12 12/04/18 08:12 12/04/18 08:12 12/04/18 08:12 12/04/18 07:54 - Medications Medications: Current Medications Acetaminophen (Tylenol 325mg Tab) 650 mg PO Q6 PRN PRN Reason: Pain, moderate (4-7) Atorvastatin Calcium (Lipitor) 40 mg PO HS [facility] Last Admin: 12/03/18 21:16 Dose: 40 mg Ciprofloxacin (Cipro) 500 mg PO Q12 [facility]; Protocol Last Admin: 12/04/18 08:50 Dose: 500 mg Docusate Sodium (Colace) 100 mg PO BID [facility] Last Admin: 12/04/18 16:30 Dose: 100 mg Enoxaparin Sodium (Lovenox) 40 mg SC DAILY [facility]; Protocol Last Admin: 12/04/18 08:51 Dose: 40 mg Famotidine (Pepcid) 20 mg PO BID [facility] Last Admin: 12/04/18 16:29 Dose: 20 mg Hydrocortisone (Cortizone 0.5% Cream) 1 applic TOP BID [facility] Last Admin: 12/04/18 16:30 Dose: 1 applic Insulin Human Regular (Humulin R) 0 units SC [facility]; Protocol Last Admin: 12/04/18 16:27 Dose: Not Given Metformin HCl (Glucophage) 1,000 mg PO BID [facility] Last Admin: 12/04/18 16:30 Dose: 1,000 mg Ondansetron HCl (Zofran Tab) 4 mg PO Q8 PRN PRN Reason: Nausea/Vomiting Oxycodone/Acetaminophen (Percocet 5/325 Mg Tab) 1 tab PO Q4 PRN PRN Reason: Pain, severe (8-10) Stop: 12/06/18 08:01 Last Admin: 12/04/18 13:31 Dose: 1 tab - Labs Labs: 12/02/18 06:00 12/02/18 06:00 PT 11.8 Seconds (9.8-13.1) 11/28/18 05:51 INR 1.0 11/28/18 05:51 APTT 36.7 Seconds (25.6-37.1) 11/28/18 05:51 Assessment and Plan - Assessment and Plan (Free Text) Assessment: Patient was personally seen and examined by me in rounds with residents. Available labs and diagnostic data reviewed. Case, Patient's condition and management plan discussed with residents in rounds. Agree with resident's progress note. Plan: As ordered.
[2018-12-03] MEDS: Enoxaparin 40 mg Syringe SC SCH (08:59)
[2018-12-03] MEDS: Oxycodone/Acetaminophen 5/325 mg Tab PO PRN ×3 (09:02→17:52)
--- NOTE | 2018-12-03 20:34 | CP.PCM.PN ---
Subjective - Date & Time of Evaluation Date of Evaluation: 12/03/18 Time of Evaluation: 13:00 - Subjective Subjective: patient is feeling fine, no acute complaints of pain, seen with bahamian translater Shruthi, patient now considering surgery, discussed with patient that at present acute rehab goals limited planning for dc to subacute in few days Objective - Vital Signs/Intake and Output Vital Signs (last 24 hours): Temp Pulse Resp BP Pulse Ox 98.1 F 90 20 137/71 96 12/03/18 20:03 12/03/18 20:03 12/03/18 20:03 12/03/18 20:03 12/03/18 20:03 - Medications Medications: Current Medications Acetaminophen (Tylenol 325mg Tab) 650 mg PO Q6 PRN PRN Reason: Pain, moderate (4-7) Atorvastatin Calcium (Lipitor) 40 mg PO HS [facility] Last Admin: 12/02/18 21:21 Dose: 40 mg Ciprofloxacin (Cipro) 500 mg PO Q12 [facility]; Protocol Last Admin: 12/03/18 08:58 Dose: 500 mg Docusate Sodium (Colace) 100 mg PO BID [facility] Last Admin: 12/03/18 16:23 Dose: 100 mg Enoxaparin Sodium (Lovenox) 40 mg SC DAILY [facility]; Protocol Last Admin: 12/03/18 08:59 Dose: 40 mg Famotidine (Pepcid) 20 mg PO BID [facility] Last Admin: 12/03/18 16:22 Dose: 20 mg Hydrocortisone (Cortizone 0.5% Cream) 1 applic TOP BID [facility] Last Admin: 12/03/18 16:23 Dose: 1 applic Insulin Human Regular (Humulin R) 0 units SC [facility]; Protocol Last Admin: 12/03/18 16:19 Dose: Not Given Metformin HCl (Glucophage) 1,000 mg PO BID [facility] Last Admin: 12/03/18 16:23 Dose: 1,000 mg Ondansetron HCl (Zofran Tab) 4 mg PO Q8 PRN PRN Reason: Nausea/Vomiting Oxycodone/Acetaminophen (Percocet 5/325 Mg Tab) 1 tab PO Q4 PRN PRN Reason: Pain, severe (8-10) Stop: 12/06/18 08:01 Last Admin: 12/03/18 17:52 Dose: 1 tab - Labs Labs: 12/02/18 06:00 12/02/18 06:00 PT 11.8 Seconds (9.8-13.1) 11/28/18 05:51 INR 1.0 11/28/18 05:51 APTT 36.7 Seconds (25.6-37.1) 11/28/18 05:51 - Constitutional Appears: Well - Head Exam Head Exam: ATRAUMATIC, NORMAL INSPECTION, NORMOCEPHALIC - Eye Exam Eye Exam: EOMI, Normal appearance Pupil Exam: NORMAL ACCOMODATION, PERRL - ENT Exam ENT Exam: Mucous Membranes Moist, Normal Exam - Neck Exam Neck Exam: Full ROM, Normal Inspection - Respiratory Exam Respiratory Exam: Clear to Ausculation Bilateral, NORMAL BREATHING PATTERN - Cardiovascular Exam Cardiovascular Exam: REGULAR RHYTHM - GI/Abdominal Exam GI & Abdominal Exam: Soft, Normal Bowel Sounds - Rectal Exam Rectal Exam: NORMAL INSPECTION - Exam External exam: NORMAL EXTERNAL EXAM Additional comments: right arm in sling, and right leg in immobilizer - Extremities Exam Extremities Exam: Normal Capillary Refill, Normal Inspection - Back Exam Back Exam: NORMAL INSPECTION - Neurological Exam Neurological Exam: Alert, Awake Neuro motor strength exam: Right Upper Extremity: 2/1 (sling , ggod staff development manager strenght and sensation), Right Lower Extremity: 2/1 (right leg with immolizer, toes and foot with good sensation, able to move dosiflex and plantarflex right foot with the immobilizer) - Psychiatric Exam Psychiatric exam: Normal Affect Assessment and Plan (1) Right humeral fracture Status: Acute (2) Right femoral fracture Assessment & Plan: patient seen and examined with bahamian translater Shruthi, discussed rehab goals limited and dc in few days to subacute for additional rehab, patient considering surgery, informed Dr Hillman and Dr Stewart ortho, they said they will arrange it, patient for team conference Status: Acute
--- NOTE | 2018-12-03 20:48 | CP.PCM.PN ---
Subjective - Date & Time of Evaluation Date of Evaluation: 12/01/18 Time of Evaluation: 12:00 - Subjective Subjective: no acute complaints at present Objective - Vital Signs/Intake and Output Vital Signs (last 24 hours): Temp Pulse Resp BP Pulse Ox 98.1 F 90 20 137/71 96 12/03/18 20:03 12/03/18 20:03 12/03/18 20:03 12/03/18 20:03 12/03/18 20:03 - Medications Medications: Current Medications Acetaminophen (Tylenol 325mg Tab) 650 mg PO Q6 PRN PRN Reason: Pain, moderate (4-7) Atorvastatin Calcium (Lipitor) 40 mg PO HS [facility] Last Admin: 12/02/18 21:21 Dose: 40 mg Ciprofloxacin (Cipro) 500 mg PO Q12 [facility]; Protocol Last Admin: 12/03/18 08:58 Dose: 500 mg Docusate Sodium (Colace) 100 mg PO BID [facility] Last Admin: 12/03/18 16:23 Dose: 100 mg Enoxaparin Sodium (Lovenox) 40 mg SC DAILY [facility]; Protocol Last Admin: 12/03/18 08:59 Dose: 40 mg Famotidine (Pepcid) 20 mg PO BID [facility] Last Admin: 12/03/18 16:22 Dose: 20 mg Hydrocortisone (Cortizone 0.5% Cream) 1 applic TOP BID [facility] Last Admin: 12/03/18 16:23 Dose: 1 applic Insulin Human Regular (Humulin R) 0 units [facility]; Protocol Last Admin: 12/03/18 16:19 Dose: Not Given Metformin HCl (Glucophage) 1,000 mg PO BID [facility] Last Admin: 12/03/18 16:23 Dose: 1,000 mg Ondansetron HCl (Zofran Tab) 4 mg PO Q8 PRN PRN Reason: Nausea/Vomiting Oxycodone/Acetaminophen (Percocet 5/325 Mg Tab) 1 tab PO Q4 PRN PRN Reason: Pain, severe (8-10) Stop: 12/06/18 08:01 Last Admin: 12/03/18 17:52 Dose: 1 tab - Labs Labs: 12/02/18 06:00 12/02/18 06:00 PT 11.8 Seconds (9.8-13.1) 11/28/18 05:51 INR 1.0 11/28/18 05:51 APTT 36.7 Seconds (25.6-37.1) 11/28/18 05:51 - Constitutional Appears: Well - Head Exam Head Exam: ATRAUMATIC, NORMAL INSPECTION, NORMOCEPHALIC - Eye Exam Eye Exam: EOMI, Normal appearance Pupil Exam: NORMAL ACCOMODATION, PERRL - ENT Exam ENT Exam: Mucous Membranes Moist, Normal Exam - Neck Exam Neck Exam: Full ROM, Normal Inspection - Respiratory Exam Respiratory Exam: Clear to Ausculation Bilateral, NORMAL BREATHING PATTERN - Cardiovascular Exam Cardiovascular Exam: REGULAR RHYTHM - GI/Abdominal Exam GI & Abdominal Exam: Soft, Normal Bowel Sounds - Rectal Exam Rectal Exam: NORMAL INSPECTION - Exam External exam: NORMAL EXTERNAL EXAM - Extremities Exam Extremities Exam: Full ROM, Normal Capillary Refill, Normal Inspection - Back Exam Back Exam: NORMAL INSPECTION - Neurological Exam Neurological Exam: Alert Neuro motor strength exam: Right Upper Extremity: 2/1 (sling NWB), Right Lower Extremity: 2/1 (immobilizer NWB) - Psychiatric Exam Psychiatric exam: Normal Affect - Skin Skin Exam: Normal Color Assessment and Plan (1) Right humeral fracture Status: Acute (2) Right femoral fracture Assessment & Plan: plan to continue with physical, occupational rec therapy and non weight bearing on arm and leg, pain is stable Status: Acute
[2018-12-04] MEDS: Insulin Regular 100 units/ml SC SCH ×4 (06:39→21:00)
--- NOTE | 2018-12-04 06:56 | CP.PCM.PN ---
<Mercy Zhong - Last Filed: 12/04/18 11:35> Subjective - Date & Time of Evaluation Date of Evaluation: 12/04/18 Time of Evaluation: 06:56 - Subjective Subjective: Patient seen and examined this morning, reports mild arm pain but well with pain meds, no overnight events. Working on PT, for Ortho f/u visit tomorrow, considering surgery Objective - Vital Signs/Intake and Output Vital Signs (last 24 hours): Temp Pulse Resp BP Pulse Ox 98.1 F 90 20 137/71 96 12/03/18 20:03 12/03/18 20:03 12/03/18 20:03 12/03/18 20:03 12/03/18 20:03 - Medications Medications: Current Medications Acetaminophen (Tylenol 325mg Tab) 650 mg PO Q6 PRN PRN Reason: Pain, moderate (4-7) Atorvastatin Calcium (Lipitor) 40 mg PO HS [facility] Last Admin: 12/03/18 21:16 Dose: 40 mg Ciprofloxacin (Cipro) 500 mg PO Q12 [facility]; Protocol Last Admin: 12/03/18 21:16 Dose: 500 mg Docusate Sodium (Colace) 100 mg PO BID [facility] Last Admin: 12/03/18 16:23 Dose: 100 mg Enoxaparin Sodium (Lovenox) 40 mg SC DAILY [facility]; Protocol Last Admin: 12/03/18 08:59 Dose: 40 mg Famotidine (Pepcid) 20 mg PO BID [facility] Last Admin: 12/03/18 16:22 Dose: 20 mg Hydrocortisone (Cortizone 0.5% Cream) 1 applic TOP BID [facility] Last Admin: 12/03/18 16:23 Dose: 1 applic Insulin Human Regular (Humulin R) [address] [facility]; Protocol Last Admin: 12/04/18 06:39 Dose: Not Given Metformin HCl (Glucophage) 1,000 mg PO BID [facility] Last Admin: 12/03/18 16:23 Dose: 1,000 mg Ondansetron HCl (Zofran Tab) 4 mg PO Q8 PRN PRN Reason: Nausea/Vomiting Oxycodone/Acetaminophen (Percocet 5/325 Mg Tab) 1 tab PO Q4 PRN PRN Reason: Pain, severe (8-10) Stop: 12/06/18 08:01 Last Admin: 12/03/18 17:52 Dose: 1 tab - Labs Labs: 12/02/18 06:00 12/02/18 06:00 PT 11.8 Seconds (9.8-13.1) 11/28/18 05:51 INR 1.0 11/28/18 05:51 APTT 36.7 Seconds (25.6-37.1) 11/28/18 05:51 - Constitutional Appears: No Acute Distress - Head Exam Head Exam: NORMAL INSPECTION - Eye Exam Eye Exam: Normal appearance - ENT Exam ENT Exam: Mucous Membranes Moist - Neck Exam Neck Exam: Full ROM, Normal Inspection. absent: Tenderness, Thyromegaly - Respiratory Exam Respiratory Exam: Clear to Ausculation Bilateral, NORMAL BREATHING PATTERN - Cardiovascular Exam Cardiovascular Exam: REGULAR RHYTHM, +S1, +S2 - GI/Abdominal Exam GI & Abdominal Exam: Soft, Normal Bowel Sounds. absent: Distended, Guarding, Tenderness - Extremities Exam Extremities Exam: absent: Calf Tenderness, Pedal Edema Additional comments: R shoulder sling and R knee brace noted in place, intact. - Neurological Exam Neurological Exam: Alert, Awake, CN II-XII Intact, Oriented x3 - Psychiatric Exam Psychiatric exam: Normal Mood - Skin Skin Exam: Dry, Warm Assessment and Plan - Assessment and Plan (Free Text) Assessment: 63 yo obese female with hx of DM and HTN with R humeral and femoral fracture s/p fall on 11/23/18 admitted to rehab unit for PT/OT. Plan: R humeral and femoral fracture - pain management - NWB to RLE and RUE - Physiatry consulted, recs appreciated - PT/OT - HTN: controlled, continue home meds - DM: chronic controlled, continue home meds - DVT ppx - Per Shruthi COOLEY pt for appointment with orthopedic surgeon tomorrow and plan to return to [facility] facility, pending [facility] approval, Surgery likely scheduled for Sunday12/09/18. - Continue rest of plan as ordered UTI - urine cx positive E coli - continue abx Case discussed with Dr Hillman. <Froy Hillman - Last Filed: 12/04/18 16:45> Objective - Vital Signs/Intake and Output Vital Signs (last 24 hours): Temp Pulse Resp BP Pulse Ox 98.7 F 77 19 132/83 98 12/04/18 08:12 12/04/18 08:12 12/04/18 08:12 12/04/18 08:12 12/04/18 07:54 - Medications Medications: Current Medications Acetaminophen (Tylenol 325mg Tab) 650 mg PO Q6 PRN PRN Reason: Pain, moderate (4-7) Atorvastatin Calcium (Lipitor) 40 mg PO HS [facility] Last Admin: 12/03/18 21:16 Dose: 40 mg Ciprofloxacin (Cipro) 500 mg PO Q12 [facility]; Protocol Last Admin: 12/04/18 08:50 Dose: 500 mg Docusate Sodium (Colace) 100 mg PO BID [facility] Last Admin: 12/04/18 16:30 Dose: 100 mg Enoxaparin Sodium (Lovenox) 40 mg SC DAILY [facility]; Protocol Last Admin: 12/04/18 08:51 Dose: 40 mg Famotidine (Pepcid) 20 mg PO BID [facility] Last Admin: 12/04/18 16:29 Dose: 20 mg Hydrocortisone (Cortizone 0.5% Cream) 1 applic TOP BID [facility] Last Admin: 12/04/18 16:30 Dose: 1 applic Insulin Human Regular (Humulin R) [address] [facility]; Protocol Last Admin: 12/04/18 16:27 Dose: Not Given Metformin HCl (Glucophage) 1,000 mg PO BID [facility] Last Admin: 12/04/18 16:30 Dose: 1,000 mg Ondansetron HCl (Zofran Tab) 4 mg PO Q8 PRN PRN Reason: Nausea/Vomiting Oxycodone/Acetaminophen (Percocet 5/325 Mg Tab) 1 tab PO Q4 PRN PRN Reason: Pain, severe (8-10) Stop: 12/06/18 08:01 Last Admin: 12/04/18 13:31 Dose: 1 tab - Labs Labs: 12/02/18 06:00 12/02/18 06:00 PT 11.8 Seconds (9.8-13.1) 11/28/18 05:51 INR 1.0 11/28/18 05:51 APTT 36.7 Seconds (25.6-37.1) 11/28/18 05:51 Assessment and Plan - Assessment and Plan (Free Text) Assessment: Patient was personally seen and examined by me in rounds with residents. Available labs and diagnostic data reviewed. Case, Patient's condition and management plan discussed with residents in rounds. Agree with resident's progress note. Plan: As ordered.
[2018-12-04] MEDS: Enoxaparin 40 mg Syringe SC SCH (08:51)
[2018-12-04] MEDS: Oxycodone/Acetaminophen 5/325 mg Tab PO PRN ×3 (08:52→19:10)
--- NOTE | 2018-12-04 12:16 | PCM.PSYTMC ---
Acute Rehab Team Conference - - Vital Signs: Vital Signs (Last 8 Hours): Vital Signs 12/04/18 12/04/18 07:54 08:12 Temperature 97.7 F 98.7 F Pulse Rate 80 77 Respiratory 21 19 Rate Blood Pressure 139/71 132/83 O2 Sat by Pulse 98 Oximetry Pain: 1 - Precautions: Precautions: Fall Prevention, Hip Precautions - Consults: Comment: Dr. Rafy Mcduffie - Skin: Incision Site: NA - Toileting: Toileting: Maximal Assistance - Bladder Management: Bladder Pattern: Normal Voiding Method: Bedside Commode, Bedpan, Diaper Bladder Management: Maximal Assistance - Transfers: Transfers: Dependent - ADL's: ADL's: Dependent - Pain Management: Other Intervention:: Percocet 5/325 mg 1 tab Q4 hours - Patient/Family Teaching: Other Intervention:: Diabetes teaching - Goals/Time Frame: Comment: Next rehab team conference - Provider: Registered Nurse:: Marsha Shelton Physical Therapy - Bed Mobility Bed Mobility: Verbal Cues, Moderate Assistance - Transfers Wheelchair to Mat: Verbal Cues, Maximum Assistance Sit to Stand: Verbal Cues, Minimal Assistance - Ambulation Level of Assistance: Dependent Comment: pivoting on L foot to complete stand pivot transfers between chair and bed - Stair Negotiation Stairs: Level of Assistance: Not Tested, Dependent - Standing Balance Static Stand: Contact Guard Assist Comment: jaquelin-walker - Pain Pain (assessed during therapy session): 8 Alleviating Techniques: Medication, Ice, Position Change, Elevation, Distraction, Relaxation Techniques, Inactivity Comment: 02/15 RUE. -01/15 RLE - Insight/Carryover Insight/Carryover: Fair - Patient/Family Education Comment: safety, therapy schedule, therapy goals, mobility, purpose of immobilizer, weight bearing status, POC, use of call etienne, transfer techniques - Assessment/Plan Assessment: Patient continues to require min A for transfers and has poor tolerance to standing balance requiring assistance for trunk control as well as RLE management. Patient fatigues rapidly in standing as she reports LLE gets tired. Patient has improved pain today and improved participation in therapy activities though continues to require rest breaks as needed throughout session. Patient requires assistance for bed/mat mobility and repositioning in WC secondary to body size and NWBing status of RUE. PT continues to recommends therapeutic services in the sub-acute rehab setting to continue addressing mobility, safety and goals to reduce burden of care. - Goals Timeframe: 7 days Goals: -rolling with min A. -supine to/from sit with min A. -SPT with mod A of 1. -sit to/from stand with CG of 1, patient able to hold RLE weight without assistance - Provider Physical Therapist:: Kay Hammonds License Number:: [id number] Occupational Therapy - Arousal/Attention/Orientation Level of Consciousness: Awake, Alert Patient Orientation: Person, Place, Time, Appropriate to Age, Appropriate to Situation Assessment Comment: -anxiety. -limited by R arm, R LE pain, NWB RUE/RLE - ADL/IADL Self Feeding: Set-up Help Grooming: Set-up Help Bathing-Upper Ext: Dependent Bathing-Lower Ext: Dependent Dressing-Upper Ext: Maximum Assistance, Dependent Dressing-Lower Ext: Dependent - Sitting Balance Static Sitting: Supervision Dynamic Sitting: Reaches across midline, Reaches out of base of support, Reaches within base of support, Minimal Assistance Comment: seated unsupported at edge of bed - Transfers Wheelchair to Bed Transfers: Verbal Cues, Set-up Help, Moderate Assistance, Maximum Assistance Toilet Transfers: Verbal Cues, Set-up Help, Moderate Assistance, Maximum Assistance Comment: 2 persons, one person holding w/c and other assisting pt with transfers - Wheelchair Management Level of Assistance: Maximum Assistance Distance (ft.): 10 - Upper Extremity Status Right Upper Extremity Comment: -R shoulder-NOT tested. -PROM in R elbow flexion/extension--WFLS, strength 3-/5--AROM limited by impaired strength. - P/AROM in R forearm supination/pronation--WFLS, strength 3/5. -P/AROM in R wrist flexion/extension--WFLS, strength 3+/5 Left Upper Extremity Comment: A/PROM WNLS; strength 4/5 - Pain Pain (assessed during therapy session): 8 Alleviating Techniques: Medication, Ice, Massage, Position Change, Elevation, Distraction, Relaxation Techniques, Inactivity - Insight/Carryover Insight/Carryover: Fair - Patient/Family Education Comment: -ongoing for adls, transfers/mobility uisng adaptive/compensatory strategies. -w/c and bed positioning, RUE/RLE. -encourage adl participation, OOB activities, therapy participation. -pain management techniques, breathing strategies. -safety techniques. -biofreeze, cold pack and position changes for pain managementof RUE - Assessment/Plan Assessment: Pt is a 63 year old Occitan speaking female with dx: R humeral, R femur fx--RLE NWB. Precautions: NWB RUE/RLE, NO ROM TO R SHOULDER, falls, DM, RUE sling at all times & RLE knee immobilizer at all times. Pt limited by NWB RUE/RLE, ++pain in R LE/UE , ++anxiety/fear, impaired knowledge of adaptive/compensatory strategies, , impaired standing balance/tolerance, impaired activity tolerance/endurance, impaired overall strength(deconditioned)--which all impact on function in self care, transfers/mobility. Pt will continue to benefit from skilled OT to improve function using adaptive/compensatory strategies, +caregiver ed. Pt continues to demonstrate improvements in bed mobility/transfers and light adls. Pt may benefit from psychology consult for coping strategies/mood--overwhelmed by current medical condition. Pt will benefit from transition to [facility] after acute rehab stay. pt mentions feeling better after tx session. *Goal: min-mod assist and verbal cues with assistive device w/c level, compensatory/adaptive strategies. [ End ] - Goals Timeframe: 1 week Comment: -UPPER BODY DRESSING: mod assist and verbal cues. -LOWER BODY DRESSING: mod assist and verbal cues with adaptive devices. -TOILETING: mod assist and verbal cues. -TRANSFERS:<->bed, commode, chair and other surfaces with mod assist and verbal cues 1 person assist. -BED MOBILITY: supine<->sit with min assist and verbal cues with bedrails prn. -Complete ROM of R elb ow/forearm wrist and digits with min cues - Provider Occupational Therapist:: Sharifa Vizcarra License Number: [id number] Recreational Therapy - Participation Participation: Monitors His/Her Own Leisure Time - Attendance Attendance: Daily - Activities Leisure Activities: Socializing - Socialization Level of Socialization: Initiates/interacts freely with care givers and peer - Assessment Assessment/Plan: Pt receives daily room visits for social support and encouragement to participate in sessions. Pt's barriers to participation include decrease arousal and pain. Pt is agreeable to recreation therapy; however, when she is seen during visits she expresses decrease arousal to participate. Pt will benefit from participating in recreation therapy sessions for diversion from anxiety and pain as well as improve activity tolerance level. Pt presents with positive social support from family. Problems Currently Limiting Participation: pain, anxiety, decrease leisure awareness level, decrease activity tolerance level, NWB R UE (pt is R hand dominant) Goals and Time Frame: Pt will tolerate 30 minutes of recreation therapy session with CGA to complete task by date of discharge. - Provider Therapist: Blank Barrientos Nutrition - Current Diet Current Diet/Supplement/Feedings: Moderate consistent CHO prostat sugar free 30 ml 1 per day - Appetite Percent Meal Consumed: 50-74% - Assessment/Goals/Time Frame Assessments/Goals/Time Frame: Pt at moderate nutritional risk. 1. Pt to consume 75-100% of meals (unmet, continue). 2. Blood glucoses to be between 70-180 mg/dl (Met, continue). Follow-up due on 12/10/2018 - Provider Provider: Colleen Argueta Case Management - Psychosocial Assessment Support Systems: Desirae Salcedo ([facility]) [phone] Psychological Interventions/Needs: Patient is AAO and able to verbalize needs. Discharge Concerns: Patient is NWB to RLE and RUE, will require [facility] to manage needs and care Patient/Family Meeting: CM met with patient and rehab team Intervention/Goal/Outcome: 1. Goal: Mod I 2. Plan: patient to be discharged from Acute rehab tomorrow with a scheduled appointment with the orthopedic surgeon and to return to [facility] facility with acceptance following her appointment- with surgery likely scheduled for Saturday 12/09 3. f/u with [facility] referral for [facility] as this facility is patient's and family's first choice 4. coordinate transportation to appointment and [facility] facility 5. prepare all necessary documentation for transfer 6. continued emotional support - Discharge Plan Discharge Plan: Subacute care - Provider Provider: Shruthi Diallo License Number: [id number] Rehabilitation Plan - Treatment Plan Treatment Plan: Physical Therapy, Occupational Therapy, Speech, Dietary, Patient/Family Education - Recommendation Recommendation: Physical Therapy, Occupational Therapy, Dietary, Patient/Family Education - Discharge Plan Discharge to: Subacute ([facility])
--- NOTE | 2018-12-04 13:31 | CP.PCM.PN ---
Subjective - Date & Time of Evaluation Date of Evaluation: 12/04/18 Time of Evaluation: 12:00 - Subjective Subjective: patient is doing well, less arm and leg discomfort Objective - Vital Signs/Intake and Output Vital Signs (last 24 hours): Temp Pulse Resp BP Pulse Ox 98.7 F 77 19 132/83 98 12/04/18 08:12 12/04/18 08:12 12/04/18 08:12 12/04/18 08:12 12/04/18 07:54 - Medications Medications: Current Medications Acetaminophen (Tylenol 325mg Tab) 650 mg PO Q6 PRN PRN Reason: Pain, moderate (4-7) Atorvastatin Calcium (Lipitor) 40 mg PO HS [facility] Last Admin: 12/03/18 21:16 Dose: 40 mg Ciprofloxacin (Cipro) 500 mg PO Q12 [facility]; Protocol Last Admin: 12/04/18 08:50 Dose: 500 mg Docusate Sodium (Colace) 100 mg PO BID [facility] Last Admin: 12/04/18 08:51 Dose: 100 mg Enoxaparin Sodium (Lovenox) 40 mg SC DAILY [facility]; Protocol Last Admin: 12/04/18 08:51 Dose: 40 mg Famotidine (Pepcid) 20 mg PO BID [facility] Last Admin: 12/04/18 08:51 Dose: 20 mg Hydrocortisone (Cortizone 0.5% Cream) 1 applic TOP BID [facility] Last Admin: 12/04/18 08:50 Dose: 1 applic Insulin Human Regular (Humulin R) 0 units SC [facility]; Protocol Last Admin: 12/04/18 12:33 Dose: Not Given Metformin HCl (Glucophage) 1,000 mg PO BID [facility] Last Admin: 12/04/18 08:50 Dose: 1,000 mg Ondansetron HCl (Zofran Tab) 4 mg PO Q8 PRN PRN Reason: Nausea/Vomiting Oxycodone/Acetaminophen (Percocet 5/325 Mg Tab) 1 tab PO Q4 PRN PRN Reason: Pain, severe (8-10) Stop: 12/06/18 08:01 Last Admin: 12/04/18 08:52 Dose: 1 tab - Labs Labs: 12/02/18 06:00 12/02/18 06:00 PT 11.8 Seconds (9.8-13.1) 11/28/18 05:51 INR 1.0 11/28/18 05:51 APTT 36.7 Seconds (25.6-37.1) 11/28/18 05:51 - Constitutional Appears: Well - Head Exam Head Exam: ATRAUMATIC, NORMAL INSPECTION, NORMOCEPHALIC - Eye Exam Eye Exam: EOMI, Normal appearance, PERRL Pupil Exam: NORMAL ACCOMODATION - ENT Exam ENT Exam: Mucous Membranes Moist, Normal Exam - Neck Exam Neck Exam: Full ROM, Normal Inspection - Respiratory Exam Respiratory Exam: Clear to Ausculation Bilateral, NORMAL BREATHING PATTERN - Cardiovascular Exam Cardiovascular Exam: REGULAR RHYTHM - GI/Abdominal Exam GI & Abdominal Exam: Soft, Normal Bowel Sounds - Rectal Exam Rectal Exam: NORMAL INSPECTION - Exam External exam: NORMAL EXTERNAL EXAM - Extremities Exam Extremities Exam: Full ROM, Normal Capillary Refill - Back Exam Back Exam: NORMAL INSPECTION - Neurological Exam Neurological Exam: Alert, Awake Neuro motor strength exam: Right Upper Extremity: 2/1 (right sling ), Right Lower Extremity: 2/1 (right immobilizer) - Psychiatric Exam Psychiatric exam: Normal Affect, Normal Mood - Skin Skin Exam: Dry, Intact Assessment and Plan (1) Right humeral fracture Status: Acute (2) Right femoral fracture Status: Acute - Assessment and Plan (Free Text) Assessment: status post team conference, plan for subacute rehab at [place], surgery to be arranged by Dr Hillman and Dr Rodriguez, orthopedic follow up on then for subacute
[2018-12-04 18:51] LABS: BASO # 0.1 K/uL (0.0-0.2); BASO % 0.6 % (0.0-2.0); EOS # 0.2 K/uL (0.0-0.7); HEMOGLOBIN 12.5 g/dL (12.0-16.0); LYMPH # 2.9 K/uL (1.0-4.3); LYMPH % 25.1 % (20.0-40.0); MEAN CELL VOLUME 91.8 fl (81.0-99.0); MEAN CORPUSCULAR HEMOGLOBIN 30.6 pg (27.0-31.0); MEAN CORPUSCULAR HGB CONC 33.3 g/dL (33.0-37.0); MEAN PLATELET VOLUME 9.3 fl (7.2-11.7); MONO # 0.9 K/uL (0.0-0.8); MONO % 7.8 % (0.0-10.0); NEUT # 7.5 K/uL (1.8-7.0); NEUT % 64.5 % (50.0-75.0); RBC 4.08 Mil/uL (3.80-5.20); RED CELL DISTRIBUTION WIDTH 14.6 % (11.5-14.5); WHITE BLOOD COUNT 11.5 K/uL (4.8-10.8)
[2018-12-04 19:02] LABS: ALB/GLOB RATIO 1.3 (1.0-2.1); ALBUMIN 4.2 g/dL (3.5-5.0); ALT/SGPT 22 U/L (9-52); AST/SGOT 25 U/L (14-36); BLOOD UREA NITROGEN 14 mg/dl (7-17); CALCIUM 9.2 mg/dL (8.4-10.2); GFR NON-AFRICAN AMERICAN > 60
[2018-12-04 19:07] LABS: INR 1.1; PROTHROMBIN TIME 12.7 Seconds (9.8-13.1)
[2018-12-04 19:09] LABS: PARTIAL THROMBOPLASTIN TIME 41.1 Seconds (25.6-37.1)
[2018-12-05] MEDS: Insulin Regular 100 units/ml SC SCH ×3 (06:30→18:10)
[2018-12-05 08:27] VITALS: BP 126/68; PULSE 74; RESP 22; TEMP 98.1; O2SAT 97
[2018-12-05] MEDS: Enoxaparin 40 mg Syringe SC SCH (08:38)
--- NOTE | 2018-12-05 11:22 | RAD ---
Date of service: 12/05/2018 HISTORY: Pre op COMPARISON: No prior. TECHNIQUE: Chest PA and lateral views FINDINGS: LUNGS: No active pulmonary disease. PLEURA: No significant pleural effusion identified. No pneumothorax apparent. CARDIOVASCULAR: No aortic atherosclerotic calcification present. Normal cardiac size. No pulmonary vascular congestion. OSSEOUS STRUCTURES: No significant abnormalities. VISUALIZED UPPER ABDOMEN: Normal. OTHER FINDINGS: None. IMPRESSION: No active disease.
--- NOTE | 2018-12-05 11:27 | CARD ---
APPROVED REPORT Date of service: 12/05/2018 EKG Measurement Heart [id number] ID [id number] <Conclusion> Normal sinus rhythm Normal ECG
--- NOTE | 2018-12-05 12:49 | CP.PCM.PN ---
Subjective - Date & Time of Evaluation Date of Evaluation: 12/05/18 Time of Evaluation: 08:03 - Subjective Subjective: Patient seen and examined this morning with Dr Hillman during rounding, mild arm pain but well controlled with pain meds, no overnight events. for Ortho f/u visit this afternoon, surgery most likely on Saturday 12/09 Objective - Vital Signs/Intake and Output Vital Signs (last 24 hours): Temp Pulse Resp BP Pulse Ox 98.1 F 74 22 126/68 97 12/05/18 08:26 12/05/18 08:26 12/05/18 08:26 12/05/18 08:26 12/05/18 08:26 - Medications Medications: Current Medications Acetaminophen (Tylenol 325mg Tab) 650 mg PO Q6 PRN PRN Reason: Pain, moderate (4-7) Atorvastatin Calcium (Lipitor) 40 mg PO HS [facility] Last Admin: 12/04/18 21:06 Dose: 40 mg Ciprofloxacin (Cipro) 500 mg PO Q12 [facility]; Protocol Last Admin: 12/05/18 08:38 Dose: 500 mg Docusate Sodium (Colace) 100 mg PO BID [facility] Last Admin: 12/05/18 08:43 Dose: Not Given Enoxaparin Sodium (Lovenox) 40 mg SC DAILY [facility]; Protocol Last Admin: 12/05/18 08:38 Dose: 40 mg Famotidine (Pepcid) 20 mg PO BID [facility] Last Admin: 12/05/18 08:39 Dose: 20 mg Hydrocortisone (Cortizone 0.5% Cream) 1 applic TOP BID [facility] Last Admin: 12/05/18 08:39 Dose: 1 applic Insulin Human Regular (Humulin R) 0 units SC [facility]; Protocol Last Admin: 12/05/18 12:21 Dose: 1 unit Metformin HCl (Glucophage) 1,000 mg PO BID [facility] Last Admin: 12/05/18 08:39 Dose: 1,000 mg Ondansetron HCl (Zofran Tab) 4 mg PO Q8 PRN PRN Reason: Nausea/Vomiting Oxycodone/Acetaminophen (Percocet 5/325 Mg Tab) 1 tab PO Q4 PRN PRN Reason: Pain, severe (8-10) Stop: 12/06/18 08:01 Last Admin: 12/04/18 19:10 Dose: 1 tab - Labs Labs: 12/04/18 18:48 12/04/18 18:48 PT 12.7 Seconds (9.8-13.1) 12/04/18 18:48 INR 1.1 12/04/18 18:48 APTT 41.1 Seconds (25.6-37.1) H 12/04/18 18:48 - Constitutional Appears: Non-toxic, No Acute Distress - Head Exam Head Exam: NORMAL INSPECTION - Eye Exam Eye Exam: Normal appearance - ENT Exam ENT Exam: Mucous Membranes Moist - Neck Exam Neck Exam: Full ROM, Normal Inspection. absent: Tenderness - Respiratory Exam Respiratory Exam: Clear to Ausculation Bilateral, NORMAL BREATHING PATTERN - Cardiovascular Exam Cardiovascular Exam: REGULAR RHYTHM, +S1, +S2. absent: Tachycardia, Murmur - GI/Abdominal Exam GI & Abdominal Exam: Soft, Normal Bowel Sounds. absent: Distended, Tenderness Additional comments: Abd obese - Extremities Exam Extremities Exam: Normal Capillary Refill. absent: Calf Tenderness, Pedal Edema Additional comments: R shoulder sling and R knee brace noted in place, intact, able to move fingers and toes, no edema or skin discoloration noted - Neurological Exam Neurological Exam: Alert, Awake, CN II-XII Intact, Oriented x3 - Psychiatric Exam Psychiatric exam: Normal Mood - Skin Skin Exam: Dry, Warm Assessment and Plan - Assessment and Plan (Free Text) Assessment: 63 yo obese female with hx of DM and HTN with R humeral and femoral fracture s/p fall on 11/23/18 admitted to rehab unit for PT/OT. Plan: R humeral and femoral fracture - pain management - NWB to RLE and RUE - Physiatry consulted, recs appreciated - PT/OT - HTN: controlled, continue home meds - DM: chronic controlled, continue home meds - DVT ppx - for f/u appointment with orthopedic surgeon today at 1 pm - planning to d/c to [facility] this evening - Surgery likely scheduled for Sunday12/09/18 at [facility], pt to continue rehab at [facility] - CXR negative, EKG nsr, no acute changes, all preop labs reviewed and wnl - Patient medically cleared for surgery. - Continue rest of plan as ordered UTI - urine cx positive E coli - continue abx Case discussed with Dr Hillman.
[2018-12-05] MEDS: Oxycodone/Acetaminophen 5/325 mg Tab PO PRN (13:18)
== END 2018-12-05 17:35 | DRG 560 ==
PROVIDERS: ADMIT Internal Medicine; ATTEND Internal Medicine
PROC: F07Z9FZ Gait Training/Functional Ambulation Treatment using Assistive, Adaptive, Supportive or Protective Equipment (ICD-10-PCS; principal; 2018-11-27)
PROC: F07L6FZ Therapeutic Exercise Treatment of Musculoskeletal System - Lower Back / Lower Extremity using Assistive, Adaptive, Supportive or Protective Equipment (ICD-10-PCS; 2018-11-27)
PROC: F08Z4FZ Home Management Treatment using Assistive, Adaptive, Supportive or Protective Equipment (ICD-10-PCS; 2018-11-27)
DX: S72.8X1D Other fracture of right femur, subsequent encounter for closed fracture with routine healing (principal); N39.0 Urinary tract infection, site not specified; Z68.41 Body mass index [BMI] 40.0-44.9, adult; S42.211D Unspecified displaced fracture of surgical neck of right humerus, subsequent encounter for fracture with routine healing; B96.20 Unspecified Escherichia coli [E. coli] as the cause of diseases classified elsewhere; E11.9 Type 2 diabetes mellitus without complications; I10 Essential (primary) hypertension; E66.9 Obesity, unspecified; M19.90 Unspecified osteoarthritis, unspecified site; W01.0XXD Fall on same level from slipping, tripping and stumbling without subsequent striking against object, subsequent encounter; Z96.651 Presence of right artificial knee joint; Z88.6 Allergy status to analgesic agent